=== PATIENT | female | born 1975 | race American Indian/Alaskan Native ===

== ENCOUNTER 2020-11-26 16:47 | Emergency (ER) | payer BC ==
[2020-11-26 23:31] VITALS: BP 120/79
--- NOTE | 2020-11-27 00:42 | XRay Report ---
CHEST 2 VIEWS INDICATION / CLINICAL INFORMATION: dyspnea. FINDINGS: SUPPORT DEVICES: None. HEART / MEDIASTINUM: No significant abnormality. LUNGS / PLEURA: No significant pulmonary or pleural abnormality. No pneumothorax. ADDITIONAL FINDINGS: No significant additional findings. IMPRESSION: 1. No acute findings. Signer Name: Albaro Haddad MD Signed: 11/27/2020 12:38 AM Workstation Name: [id number]
[2020-11-27] MEDS ORDERED: DICYCLOMINE 20 MG/2 ML INJ IM ONE (01:23)
[2020-11-27] MEDS ORDERED: ONDANSETRON 4 MG/2 ML INJ IV ONE (01:23)
[2020-11-27] MEDS ORDERED: FAMOTIDINE 20 MG/2 ML INJ IV ONE (01:23)
--- NOTE | 2020-11-27 01:28 | Emergency Department Report ---
ED General Adult HPI - General Chief complaint: Dyspnea/Respdistress Stated complaint: SOB/RASH Source: patient Mode of arrival: Ambulatory Limitations: No Limitations - History of Present Illness Initial comments: Patient is a 45-year-old -[place] female with a history of morbid obesity and hypertension who presents to the ED with complaint of acute onset persistent diffuse body aches and pains, persistent nausea, vomiting and diarrhea, epigastric pain, nasal and sinus congestion, loss of taste and smell for the last 1 week. Patient states that she has also been feeling generalized weakness and fatigue with lack of appetite. Patient states that she had COVID-19 test performed about 6 days ago but has not been told the results of the test. Patient however states that there is no one else at home with similar symptoms and states that she has not been vaccinated against COVID-19 viral infection. Patient denies dizziness, syncope, fever, chills, chest pain or shortness of breath, dysuria, urine frequency and urgency, vaginal bleeding, vaginal discharge or blood palpitations and headache. MD Complaint: Dry cough; nausea and vomiting and diarrhea; epigastric pain; body aches -: Sudden, week(s) (1) Location: chest, abdomen Radiation: abdomen (Epigastric) Severity scale (0 -10): 10 Quality: aching, constant Consistency: intermittent Improves with: none Worsens with: eating, movement, other (Vomiting) Associated Symptoms: denies other symptoms, cough, headaches, loss of appetite, malaise, nausea/vomiting, weakness, other (Fatigue and body aches). denies: confusion, chest pain, diaphoresis, fever/chills, rash, seizure, shortness of breath, syncope Treatments Prior to Arrival: none - Related Data Previous Rx's Medication Instructions Recorded Last Taken Type Dicyclomine [Bentyl] 20 mg PO Q6H PRN #30 tablet 11/27/20 Unknown Rx Esomeprazole Magnesium [NexIUM] 40 mg PO QDAY #30 capsule. 11/27/20 Unknown Rx Famotidine [Pepcid] 20 mg PO BID #60 tablet 11/27/20 Unknown Rx Ondansetron [Zofran Odt] 4 mg PO Q6HR PRN #20 tab.rapdis 11/27/20 Unknown Rx Allergies Allergy/AdvReac Type Severity Reaction Status Date / Time Penicillins Allergy Rash Verified 11/26/20 19:14 ED Review of Systems ROS: Stated complaint: SOB/RASH Other details as noted in HPI Constitutional: malaise, weakness (Generalized weakness), other (Generalized fatigue). denies: chills, fever Eyes: denies: eye pain, eye discharge, vision change ENT: congestion, other (Loss of taste and smell). denies: ear pain, throat pain Respiratory: cough. denies: shortness of breath, wheezing Cardiovascular: denies: chest pain, palpitations Endocrine: no symptoms reported Gastrointestinal: abdominal pain, nausea, vomiting, diarrhea Genitourinary: denies: urgency, dysuria, discharge Musculoskeletal: arthralgia (Epigastric pain), myalgia. denies: back pain, joint swelling Skin: denies: rash, lesions Neurological: denies: headache, weakness, paresthesias Psychiatric: denies: anxiety, depression Hematological/Lymphatic: denies: easy bleeding, easy bruising ED Past Medical Hx - Past Medical History Previous Medical History?: Yes Hx Hypertension: Yes - Surgical History Past Surgical History?: Yes Additional Surgical History: TL 2002 - Social History Smoking Status: Never Smoker Substance Use Type: None - Medications Home Medications: Home Medications Medication Instructions Recorded Confirmed Last Taken Type Dicyclomine [Bentyl] 20 mg PO Q6H PRN #30 tablet 11/27/20 Unknown Rx Esomeprazole Magnesium [NexIUM] 40 mg PO QDAY #30 capsule.dr 11/27/20 Unknown Rx Famotidine [Pepcid] 20 mg PO BID #60 tablet 11/27/20 Unknown Rx Ondansetron [Zofran Odt] 4 mg PO Q6HR PRN #20 tab.rapdis 11/27/20 Unknown Rx ED Physical Exam - General Limitations: No Limitations General appearance: alert, in no apparent distress - Head Head exam: Present: atraumatic, normocephalic, normal inspection - Eye Eye exam: Present: normal appearance, PERRL, EOMI Pupils: Present: normal accommodation - ENT ENT exam: Present: normal exam, normal orophraynx, mucous membranes moist, TM's normal bilaterally, normal external ear exam - Neck Neck exam: Present: normal inspection, full ROM - Respiratory Respiratory exam: Present: normal lung sounds bilaterally. Absent: respiratory distress, wheezes, rales, rhonchi, stridor, chest wall tenderness, accessory muscle use, prolonged expiratory - Cardiovascular Cardiovascular Exam: Present: normal rhythm, tachycardia, normal heart sounds. Absent: systolic murmur, diastolic murmur, rubs, gallop - GI/Abdominal GI/Abdominal exam: Present: soft, tenderness (Palpable epigastric tenderness), normal bowel sounds. Absent: guarding, rebound, hyperactive bowel sounds, hypoactive bowel sounds, organomegaly - Extremities Exam Extremities exam: Present: normal inspection, full ROM, normal capillary refill - Back Exam Back exam: Present: normal inspection, full ROM. Absent: tenderness, CVA tenderness (R), CVA tenderness (L), muscle spasm, paraspinal tenderness, vertebral tenderness - Neurological Exam Neurological exam: Present: alert, oriented X3, CN II-XII intact, normal gait, reflexes normal - Psychiatric Psychiatric exam: Present: normal affect, normal mood, anxious - Skin Skin exam: Present: warm, dry, intact, normal color. Absent: rash ED Course Vital Signs 11/26/20 11/26/20 11/26/20 19:18 22:40 23:29 Temperature 98.2 F 98.9 F Pulse Rate 100 H 111 H 96 H Respiratory 18 20 16 Rate Blood Pressure 88/62 136/77 120/79 Blood Pressure [Right] O2 Sat by Pulse 99 100 100 Oximetry 11/26/20 23:31 Temperature 98.9 F Pulse Rate 96 H Respiratory 14 Rate Blood Pressure Blood Pressure 120/79 [Right] O2 Sat by Pulse 100 Oximetry ED Medical Decision Making - Lab Data Result diagrams: 11/27/20 01:32 11/27/20 01:32 - EKG Data EKG shows normal: sinus rhythm Rate: normal - EKG Data Interpretation: normal EKG 11/27/20 02:53 EKG shows normal sinus rhythm with a ventricular rate of [address] or T wave abnormalities. - Radiology Data Radiology results: report reviewed, image reviewed [facility] [address] [place] [address] XRay Report Signed Patient: ROSANNE MAYERS MR#: [id number] 0 : 1975 Acct:[id number] Age/Sex: 45 / F ADM Date: 11/26/20 Loc: ED Attending Dr: Ordering Physician: EBENEZER YAÑEZ Date of Service: 11/27/20 Procedure(s): XR chest routine 2V Accession Number(s): [id number] cc: EBENEZER YAÑEZ Fluoro Time In Minutes: CHEST 2 VIEWS INDICATION / CLINICAL INFORMATION: dyspnea. FINDINGS: SUPPORT DEVICES: None. HEART / MEDIASTINUM: No significant abnormality. LUNGS / PLEURA: No significant pulmonary or pleural abnormality. No pneumothorax. ADDITIONAL FINDINGS: No significant additional findings. IMPRESSION: 1. No acute findings. Signer Name: Albaro Haddad MD Signed: 11/27/2020 12:38 AM Workstation Name: [id number] Transcribed By: MEKHI Dictated By: Albaro Haddad MD Electronically Authenticated By: Albaro Haddad MD Signed Date/Time: 11/27/2037 DD/ TD/TT: - Medical Decision Making This is a 45-year-old -[place] female with a history of morbid obesity and hypertension who presents to the ED with complaint of acute onset persistent diffuse body aches and pains, persistent nausea, vomiting and diarrhea, epigastric pain, nasal and sinus congestion, loss of taste and smell for the last 1 week. Patient states that she has also been feeling generalized weakness and fatigue with lack of appetite. Patient states that she had COVID-19 test performed about 6 days ago but has not been told the results of the test. Patient however states that there is no one else at home with similar symptoms and states that she has not been vaccinated against COVID-19 viral infection. In the ED, patient is alert and oriented x3 and is not in any distress but anxious, afebrile and tachycardic in triage. EKG shows normal sinus rhythm with a ventricular rate of [address] or T wave abnormalities. Chest x-ray shows no acute cardiopulmonary abnormalities or pneumonitis. Patient was treated in the ED with normal saline 1 L IV bolus x1, also given antiemetics, antacids and antispasmodic medications in the ED. On reevaluation, patient felt better, the epigastric pain resolved and patient will discharge home on medications including antacids and antiemetics. Patient was advised to self quarantine at home pending her COVID-19 diagnostic test results. Patient was advised to return to the ED immediately if symptoms get worse, otherwise follow- up with her primary care physician in 7 to 10 days for reevaluation. - Differential Diagnosis GERD; gastroenteritis; COVID-19; ACS; pancreatitis; cholelithiasis Critical care attestation.: If time is entered above; I have spent that time in minutes in the direct care of this critically ill patient, excluding procedure time. ED Disposition Clinical Impression: Viral gastroenteritis, Suspected 2019 novel coronavirus infection, Nausea and vomiting in adult patient GERD (gastroesophageal reflux disease) Qualifiers: Esophagitis presence: esophagitis presence not specified Qualified Code(s): K21.9 - Gastro-esophageal reflux disease without esophagitis Gastritis without bleeding Qualifiers: Gastritis type: other gastritis Chronicity: acute Qualified Code(s): K29.00 - Acute gastritis without bleeding Disposition: HOME / SELF CARE / HOMELESS Is pt being admited?: No Does the pt Need Aspirin: No Condition: Stable Instructions: Gastroesophageal Reflux Disease, Adult, [id number], Viral Gastroenteritis, Adult, [id number], Gastritis, Adult, [id number], Nausea and Vomiting, Adult, [id number] Additional Instructions: All lab test results were reviewed and are all nonactionable. Chest x-ray showed no acute cardiopulmonary abnormalities or pneumonitis. EKG shows normal sinus rhythm with no acute ST or T wave abnormalities. Your symptoms are likely due to GERD complications due to persistent intractable nausea and vomiting. Therefore maintain a clear liquid diet for 1224 hrs., drink plenty of fluids, take medications as needed for pain as well as for nausea and vomiting. Ensure that you self quarantine at home for 10 days if your COVID-19 diagnostic test results are positive. Return to the ED immediately if symptoms get worse. Otherwise follow-up with your primary care physician in 7 to 10 days for reevaluation. Prescriptions: Dicyclomine [Bentyl] 20 mg PO Q6H PRN #30 tablet PRN Reason: Abdominal pain Esomeprazole Magnesium [NexIUM] 40 mg PO QDAY #30 capsule. Famotidine [Pepcid] 20 mg PO BID #60 tablet Ondansetron [Zofran Odt] 4 mg PO Q6HR PRN #20 tab.rapdis PRN Reason: Nausea And Vomiting Referrals: ALBINO YOUNG MD [Staff Physician] - 7-10 days Forms: Work/School Release Form(ED) Time of Disposition: 02:58 Print Language: HUNGARIAN
[2020-11-27] MEDS ORDERED: SUCRALFATE 1 GM TAB PO ONE (01:43)
[2020-11-27 01:59] LABS: Basophils % (Auto) 0.5 % (0.0-1.8); Eosinophils # (Auto) 0.1 K/mm3 (0.0-0.4); Eosinophils % (Auto) 1.6 % (0.0-4.3); Hematocrit 35.1 % (30.3-42.9); Hemoglobin 12.1 gm/dl (10.1-14.3); Lymphocytes # (Auto) 2.2 K/mm3 (1.2-5.4); Lymphocytes % (Auto) 31.5 % (13.4-35.0); Mean Corpuscular HGB Conc 35 % (30-34); Mean Corpuscular Volume 87 fl (79-97); Monocytes # (Auto) 0.6 K/mm3 (0.0-0.8); Monocytes % (Auto) 8.9 % (0.0-7.3); Platelet Count 190 K/mm3 (140-440); Red Blood Count 4.03 M/mm3 (3.65-5.03); Red Cell Distribution Width 13.4 % (13.2-15.2)
[2020-11-27 02:14] LABS: Alanine Aminotransferase 61 units/L (7-56); Albumin 3.3 g/dL (3.9-5); Blood Urea Nitrogen 9 mg/dL (7-17); Calcium 8.2 mg/dL (8.4-10.2); Hemolysis Index 14
[2020-11-27 02:15] LABS: BUN/Creatinine Ratio 15
--- NOTE | 2020-11-27 10:22 | Electrocardiograph Report ---
[facility] Test Date: 2020-11-27 Test Time: 02:46:05 Pat Name: ROSANNE MAYERS Department: Room: Gender: F Special Certificate Dictator: : 1975 Requested By: ANURADHA GUERRA Order Number: [id number] Reading MD: Ramiro Moody Measurements Intervals [place] Rate: 73 P: 51 ID: [id number] QRS: 38 QRSD: 85 T: 19 QT: 392 QTc: 432 Interpretive Statements Sinus rhythm No previous ECG available for comparison Electronically Signed On 11-27-2020 10:21:35 EDT by Ramiro Moody
== END 2020-11-27 03:43 | disposition home or self-care (01) ==
LOC: ED 16:47
DX: A08.4 Viral intestinal infection, unspecified (principal); K21.9 Gastro-esophageal reflux disease without esophagitis; K29.00 Acute gastritis without bleeding; R11.2 Nausea with vomiting, unspecified; Z20.822 Contact with and (suspected) exposure to COVID-19; I10 Essential (primary) hypertension; Z98.890 Other specified postprocedural states; Z88.0 Allergy status to penicillin
CPT/HCPCS: 36415; 71046; 80053; 84484; 85025; 93005; 96372; 96374; 96375; 99284; J0500; J2405